=== PATIENT | male | born 1975 | race African-American/Black ===

== ENCOUNTER 2023-10-03 00:22 | Emergency (ER) | payer OTHER ==
[~2023-10-03] VITALS: Ht 185.4 cm; Wt 88.2 kg
[2023-10-03 00:46] VITALS: BP 130/94; PULSE 75; RESP 18; O2SAT 98
== END 2023-10-04 02:49 | disposition left against medical advice (07) ==
LOC: ER 00:22
DX: J02.9 Acute pharyngitis, unspecified (principal); Z53.21 Procedure and treatment not carried out due to patient leaving prior to being seen by health care provider